=== PATIENT | male | born 1950 | race Caucasian/White ===

== ENCOUNTER 2020-08-08 22:04 | Emergency (ER) | payer MEDICARE, SELFPAY ==
--- NOTE | ~2020-08-08 | XR_ITS ---
EXAMINATION: XR chest 2V EXAM DATE: 08/08/2020 22:28 INDICATION: Dull chest pain, hx of heart attacks, and multiple stents. TECHNIQUE: Frontal and lateral projections of the chest obtained and reviewed. There is no prior emmett dy for comparison. FINDINGS: Single lead pacemaker/AICD. Several other leads remaining from prior pacemakers. Sternotom y wires are present without findings to suggest sternal dehiscence. Cardiomediastinal silhouette is n ormal. No confluent consolidation, pneumothorax or pleural effusion suspected. There are no osseous a bnormalities identified. IMPRESSION: 1. No acute cardiopulmonary findings. Reviewed, dictated and finalized at location A.
[2020-08-08 22:03] VITALS: BP 173/98; PULSE 66; RESP 15; TEMP 36.6; O2SAT 99
--- NOTE | 2020-08-08 22:09 | ECG_ITS ---
Measurements Intervals [place] Rate: 63 P: 48 NV: 200 QRS: 40 QRSD: 123 T: 40 QT: 451 QTc: 465 Interpretive Statements SINUS RHYTHM VENTRICULAR PREMATURE COMPLEX BORDERLINE AV CONDUCTION DELAY INTRAVENTRICULAR CONDUCTION DELAY DELAYED PRECORDIAL R/S TRANSITION BASELINE ARTIFACT- II, III, AVF BORDERLINE ECG Electronically Signed On 08-09-2020 6:57:08 CDT by Hitesh Hammonds D.O.
[2020-08-08 22:22] LABS: Basophils Percent Auto 0.5 % (0.2-1.2); Eosinophils Absolute Auto 0.3 K/mm3 (0-0.3); Eosinophils Percent Auto 5.2 % (0-4.4); Hematocrit 42.2 % (42.0-52.0); Hemoglobin 14.2 g/dL (14.0-18.0); Immature Granulocyte Absolute 0.02 K/mm3 (0.00-0.031); Immature Granulocyte Percent A 0.3 % (0-0.5); Lymphocytes Absolute Auto 1.91 K/mm3 (0.9-3.2); Lymphocytes Percent Auto 31.1 % (18.3-44.2); Mean Corpuscular HGB Conc 33.6 g/dl (32-36); Mean Corpuscular Hemoglobin 31.7 pg (26-34); Mean Corpuscular Volume 94.2 fl (80-100); Mean Platelet Volume 9.3 fl (7.4-10.4); Monocytes Absolute Auto 0.7 K/mm3 (0.1-0.6); Monocytes Percent Auto 10.6 % (2.6-8.5); Neutrophils Absolute Auto 3.2 K/mm3 (1.3-6.7); Neutrophils Percent Auto 52.3 % (45.5-73.1); Platelet Count Result 215 k/mm3 (150-375); Red Blood Count 4.48 M/mm3 (4.6-6.20); Red Cell Distribution Width 12.5 % (11.5-14.5); White Blood Count 6.2 K/mm3 (4.5-10.0)
[2020-08-08 22:32] LABS: Anion Gap 13 mmol/L (8-16); Blood Urea Nitrogen 23 mg/dL (9-20); Calcium 9.7 mg/dL (8.4-10.2); Carbon Dioxide 21 mmol/L (22-30); Chloride 106 mmol/L (98-107); Estimated CRCL calculation 75 ml/min; Estimated Glomerular Filt Rate > 60; Glucose 119 mg/dL (75-110); Potassium 3.9 mmol/L (3.4-5.0); Sodium 140 mmol/L (137-145)
[2020-08-08 22:34] LABS: INR 1.1; Prothrombin Time 13.7 Seconds (11.1-14.7)
[2020-08-08 22:35] LABS: Partial Thromboplastin Time 27.2 SECONDS (22.3-36.8)
[2020-08-08 22:43] LABS: Troponin I 0.013 ng/mL (0.000-0.034)
[2020-08-08 23:23] VITALS: BP 150/81; PULSE 60; RESP 12; O2SAT 97
--- NOTE | 2020-08-08 23:25 | ED.CHESTPAIN ---
HPI - Chest Pain General Chief Complaint: Chest Pain Stated Complaint: chest pressure Time Seen by Provider: 08/08/20 22:10 History of Present Illness HPI narrative: Patient is a 69-year-old male who presents ER with arm heaviness and chest discomfort. Sudden onset this evening while eating pizza. Associated with belching and upset stomach. Her heaviness is 2/10 and chest discomfort is 4/10 at its highest intensity. Feels similar to previous NE in the past. Patient has had four-vessel CABG. He also has an AICD after having V. tach in the past. Resting comfortably at this time. Related Data Home Medications Medication Instructions Recorded Confirmed Centrum Silver 08/08/20 aspirin 08/08/20 calcium citrate-vitamin D3 08/08/20 fenofibrate mg PO 08/08/20 icosapent ethyl [Vascepa] g PO 08/08/20 losartan 08/08/20 rosuvastatin mg 08/08/20 sotalol 08/08/20 tamsulosin mg PO 08/08/20 venlafaxine mg PO 08/08/20 zolpidem 08/08/20 Allergies Allergy/AdvReac Type Severity Reaction Status Date / Time No Known Allergies Allergy Unknown Verified 08/08/20 22:42 Review of Systems Review of Systems: All systems reviewed & are unremarkable except as noted in HPI and below Constitutional: Constitutional: Denies chills, Denies fever(s) and Denies weakness ENT: Denies nasal congestion and Denies sore throat Cardiovascular: Cardiovascular: Reports chest pain, Denies rapid heart rate and Denies radiating jaw, neck or arm pain Respiratory: Respiratory: Denies cough, Denies dyspnea and Denies wheezing Gastrointestinal: Gastrointestinal: Denies abdominal pain, Reports bloating, Denies nausea and Denies vomiting PMFSH Past Medical History Medical History (Updated 08/09/20 @ 04:40 by Thomas Romero MD) Coronary artery disease Diabetes Hyperlipidemia Hypertension Ventricular tachycardia Surgical History Surgical History (Updated 08/09/20 @ 04:38 by Thomas Romero MD) History of coronary artery bypass graft History of percutaneous coronary intervention Social History Social History (Updated 08/09/20 @ 04:38 by Thomas Romero MD) Smoking status: Never smoker Exam Narrative: Exam Narrative: GENERAL: Well-appearing, well-nourished, and in no acute distress. HEAD: Normocephalic, atraumatic. EYES: PERRL and EOMI. CHEST: Clear to auscultation. No respiratory distress. HEART: Regular rate and rhythm. Normal peripheral pulses. ABDOMEN: Soft, nontender, nondistended. EXTREMITIES: Normal range of motion. No edema. SKIN: Warm, dry, no rash. NEURO: Alert and oriented x3. PSYCH: Normal mood and affect. Course Course Emergency Course: Resting comfortably. Chest pain-free. Informed of results. Prefers transfer to [facility] where his standards analyst is located. This has been arranged. Accepting physician is Dr. Hill. Accepting standards analyst is Dr. Garcia. Patient placed on a heparin drip. Vital Signs Vital signs: Vital Signs Temperature 97.8 F 08/08/20 22:03 Pulse Rate 66 08/08/20 22:03 Respiratory Rate 15 08/08/20 22:03 Blood Pressure 173/98 H 08/08/20 22:03 Pulse Oximetry 99 08/08/20 22:03 Temperature 97.8 F 08/08/20 22:03 Pulse Rate 69 08/09/20 03:13 Respiratory Rate 19 08/09/20 03:13 Blood Pressure 161/86 H 08/09/20 03:13 Pulse Oximetry 98 08/09/20 03:13 MDM - Chest Pain Lab Data Result diagrams: 08/08/20 22:15 08/08/20 22:15 Labs: Lab Results 08/08/20 08/08/20 08/08/20 Range/Units 22:15 22:15 22:15 WBC 6.2 (4.5-10.0) K/mm3 RBC 4.48 L (4.6-6.20) M/mm3 Hgb 14.2 (14.0-18.0) g/dL Hct 42.2 (42.0-52.0) % MCV 94.2 (80-100) fl MCH 31.7 (26-34) pg MCHC 33.6 (32-36) g/dl RDW 12.5 (11.5-14.5) % Plt Count 215 (150-375) k/mm3 MPV 9.3 (7.4-10.4) fl Immature Gran % (Auto) 0.3 (0-0.5) % Neut % (Auto) 52.3 (45.5-73.1) % Lymph % (Auto) 31.1
[2020-08-09 00:25] VITALS: BP 157/74; PULSE 63; RESP 17; O2SAT 95
[2020-08-09] MEDS: HEPARIN SODIUM 5,000 UNITS/ML VIAL 4000 UNITS IV PUSH (01:54)
[2020-08-09] MEDS: HEPARIN SOD/D5W 100 UNITS/ML 25,000 UNITS/250 ML BAG 10 UNITS IV CONT (02:27)
[2020-08-09 03:13] VITALS: BP 161/86; PULSE 69; RESP 19; O2SAT 98
--- NOTE | 2020-08-09 03:59 | PC.NURSE ---
called [facility] to request transport. ETA 30-40 minutes
--- NOTE | 2020-08-09 05:03 | PC.NURSE ---
called [facility] for ETA update. ETA [id number]
--- NOTE | 2020-08-09 05:04 | PC.NURSE ---
called [facility] to request transport. declined
[2020-08-09 06:08] VITALS: BP 158/93; PULSE 69; RESP 16; O2SAT 97
--- NOTE | 2020-08-09 06:23 | PC.NURSE ---
[facility] called and update ETA to 0700 - 0730.
[2020-08-09 06:47] VITALS: BP 172/107; PULSE 66; RESP 14; O2SAT 100
--- NOTE | 2020-08-09 07:15 | PC.NURSE ---
To [facility] via [facility].
== END 2020-08-09 07:15 | disposition short-term general hospital (02) ==
PROVIDERS: Emergency Provider Emergency Medicine; PCP Family Medicine
DX: I21.4 Non-ST elevation (NSTEMI) myocardial infarction (principal); I25.10 Atherosclerotic heart disease of native coronary artery without angina pectoris; I25.2 Old myocardial infarction; E11.9 Type 2 diabetes mellitus without complications; E78.5 Hyperlipidemia, unspecified; I10 Essential (primary) hypertension; Z95.810 Presence of automatic (implantable) cardiac defibrillator; Z79.82 Long term (current) use of aspirin; Z95.1 Presence of aortocoronary bypass graft; I49.3 Ventricular premature depolarization; I45.9 Conduction disorder, unspecified
CPT/HCPCS: 36415; 71046; 80048; 84484; 85025; 85610; 85730; 93005; 96365; 96366; 99291; J1644

== ENCOUNTER 2021-12-29 17:34 | Emergency (ER) | payer MEDICARE, SELFPAY ==
[2021-12-29] VITALS (46 sets, daily range): BP systolic 99–156; BP diastolic 58–118; PULSE 89–122; RESP 13–30; TEMP 37.1–37.2; O2SAT 96–100
--- NOTE | ~2021-12-29 | CT_ITS ---
EXAMINATION: CT facial & cervical spine wo DATE: 12/29/2021 18:14 INDICATION: fall, HI, facial inj, on eliquis TECHNIQUE: Computed tomography (CT) of the maxillofacial region and cervical spine was performed with out intravenous contrast. Automated exposure control and iterative reconstruction technique were empl oyed. The dose-length product was 552.64 mGy-cm. COMPARISON: None FINDINGS: CERVICAL: Vertebral Body Alignment: Intact. Multilevel grade 1 listheses, presumably on a degenerative basis. Craniocervical and atlantoaxial alignment: Moderate degenerative change. Alignment intact. Osseous structures/fracture: No evidence of a lytic or blastic process in the visualized spine. No e vidence of acute fracture. Cervical soft tissues: The paraspinal soft tissues planes are maintained. Degenerative changes: Vertebral body and right facet fusion at C2-3 and C3-4. Multilevel severe degen erative disc disease and facet arthropathy. Severe bilateral neural foraminal narrowing at C3-4 and C 5-6. Moderate central canal narrowing at C3-4. FACE: Soft Tissues: Left cheek soft tissue swelling. Facial bones: No acute fracture. No lytic or blastic process. Eyes: The globes are intact. Bilateral lens replacements. The soft tissue planes of the orbits are m aintained. Paranasal Sinuses: Right inferior maxillary sinus retention cyst or polyp. Foreign Bodies: No radiopaque foreign bodies. Other Findings: None. IMPRESSION: No acute fracture or traumatic malalignment in the cervical spine. No acute facial bone fracture. Reviewed, dictated and finalized at location K. UTER LABORATORY TECHNICIAN IMPRESSION: No acute fracture or traumatic malalignment in the cervical spine. No acute fac ial bone fracture.
--- NOTE | ~2021-12-29 | CT_ITS ---
EXAMINATION: CT brain wo con DATE: 12/29/2021 18:09 INDICATION: fall, HI, on eliquis . TECHNIQUE: Computed tomography (CT) of the head was performed without intravenous contrast. The mA wa s adjusted according to patient size. Iterative reconstruction technique was employed. The dose-lengt h product was 681.00 mGy-cm. COMPARISON: None FINDINGS: No acute intracranial hemorrhage or extra-axial fluid collection. No hydrocephalus, mass, or herniation. No acute ischemic infarct. Unremarkable dural venous sinus attenuation. No acute osseous abnormality. Soft tissue swelling over the left cheek. The aerated spaces are clear. Mild atrophy and chronic white matter change. Atherosclerotic intracranial calcification. Bilateral l ens replacements. IMPRESSION: No acute intracranial process. Reviewed, dictated and finalized at location K. AL WORK JOB TITLES
--- NOTE | 2021-12-29 18:35 | ECG_ITS ---
Measurements Intervals [place] Rate: 108 P: [place]: 0 QRS: 56 QRSD: 142 T: 82 QT: 357 QTc: 479 Interpretive Statements ATRIAL FIBRILLATION WITH RAPID VENTRICULAR RESPONSE INTRAVENTRICULAR CONDUCTION DELAY BORDERLINE ST-T WAVE ABNORMALITY- HIGH LATERAL LEADS BASELINE ARTIFACT- I, III, AVR, AVL ABNORMAL ECG COMPARED TO ECG 08/08/2020 22:08:01 ATRIAL FIBRILLATION NOW PRESENT Electronically Signed On 12-30-2021 9:00:50 CERTIFIED PEST CONTROL TECHNICIAN by Hitesh Hammonds D.O.
--- NOTE | 2021-12-29 18:35 | ED.FALL ---
HPI - Fall General Chief Complaint: Fall <LEXIE Barton Last Filed: 12/30/21 04:32> Stated Complaint: fall, facial injury, takes Eliquis <LEXIE Barton Last Filed: 12/30/21 04:32> Time Seen by Provider: 12/29/21 17:43 <LEXIE Barton Last Filed: 12/30/21 04:32> Source: patient <LEXIE Barton Last Filed: 12/30/21 04:32> Mode of arrival: EMS <LEXIE Barton Last Filed: 12/30/21 04:32> Limitations: no limitations <LEXIE Barton Last Filed: 12/30/21 04:32> History of Present Illness HPI Narrative: Patient is a 71-year-old male who presents the ED via EMS with report of a fall. Patient had left cataract surgery performed this morning at an outside hospital. He states he was given moderate sedation for the procedure. He had been feeling somewhat strange, almost lightheaded since receiving this medication. This afternoon, he was walking down his stone steps, when he tripped and fell. He hit his left-sided facial cheek against a rock and sustained a small laceration. Denied LOC. Patient is on Eliquis due to history of atrial fibrillation. He denies any other significant pain. Denies any eye pain, different vision changes. Denies any other prodromal sx's. Denies CP, SOB. Denies neck pain, back pain. <LEXIE Barton Last Filed: 12/30/21 04:32> Related Data Home Medications: Home Medications Medication Instructions Recorded Confirmed Centrum Silver 08/08/20 aspirin 325 mg tablet 08/08/20 calcium citrate-vitamin D3 08/08/20 fenofibrate 150 mg capsule mg PO 08/08/20 icosapent ethyl 1 gram capsule g PO 08/08/20 (Vascepa) losartan 50 mg tablet 08/08/20 rosuvastatin 20 mg tablet mg 08/08/20 sotalol 120 mg tablet 08/08/20 tamsulosin 0.4 mg capsule mg PO 08/08/20 venlafaxine 150 mg mg PO 08/08/20 capsule,extended release 24 hr zolpidem 10 mg tablet 08/08/20 <Jenny Dubois PA-C - Last Filed: 12/30/21 04:32> Allergies/Adverse Reactions: Allergies Allergy/AdvReac Type Severity Reaction Status Date / Time No Known Allergies Allergy Unknown Verified 08/08/20 22:42 <Jenny Dubois PA-C - Last Filed: 12/30/21 04:32> Review of Systems Review of Systems: CONSTITUTIONAL: Denies fever, chills, or sweats. EYES: Denies visual changes. CARDIOVASCULAR: Denies chest pain. RESPIRATORY: Denies dyspnea. GASTROINTESTINAL: Denies abdominal pain, nausea, vomiting. SKIN: Reports laceration to left facial cheek. MUSCULOSKELETAL: Denies back pain, joint pain, or myalgia. NEUROLOGIC: Reports HI, lightheadedness. Denies LOC, dizziness, headache, numbness, or weakness. <Jenny Dubois PA-C - Last Filed: 12/30/21 04:32> All systems reviewed & are unremarkable except as noted in HPI and below <Jenny Dubois PA-C - Last Filed: 12/30/21 04:32> [facility] Past Medical History Medical History: Medical History Coronary artery disease Diabetes Hyperlipidemia Hypertension Ventricular tachycardia <Jenny Dubois PA-C - Last Filed: 12/30/21 04:32> Surgical History Surgical History: Surgical History History of coronary artery bypass graft History of percutaneous coronary intervention <Jenny Dubois PA-C - Last Filed: 12/30/21 04:32> Social History Social History: Social History Smoking status: Never smoker Gender identity (if verbalized by the patient): Male <Jenny Dubois PA-C - Last Filed: 12/30/21 04:32> Exam Narrative: GENERAL: Well appearing, well-nourished, non-toxic, in no acute distress. HEAD: Normocephalic. Approximately 1 cm laceration to left facial cheek, pinpoint area of persistent bleeding. EYES: PERRL/EOMI,
[2021-12-29] MEDS: SODIUM CHLORIDE 0.9% IV 1,000 ML 999 ML IV CONT ×2 (22:29→22:31)
== END 2021-12-30 00:10 | disposition home or self-care (01) ==
PROVIDERS: Emergency Provider Emergency Medicine; PCP Family Medicine
DX: S01.412A Laceration without foreign body of left cheek and temporomandibular area, initial encounter (principal); I48.11 Longstanding persistent atrial fibrillation; I25.10 Atherosclerotic heart disease of native coronary artery without angina pectoris; E78.5 Hyperlipidemia, unspecified; I10 Essential (primary) hypertension; E11.9 Type 2 diabetes mellitus without complications; W10.9XXA Fall (on) (from) unspecified stairs and steps, initial encounter
CPT/HCPCS: 12011; 70450; 70486; 72125; 93005; 96360; 96361; 99284; J7030